=== PATIENT | male | born 1985 | race Two or more races ===

== ENCOUNTER 2021-11-25 00:31 | Emergency (ER) | payer SELFPAY ==
[~2021-11-25] VITALS: Ht 170.2 cm; Wt 90.7 kg
[~2021-11-25 00:31] MED LIST: TRAM50TA2; ZOLP5TAB
[2021-11-25 01:00] VITALS: BP 124/68
== END 2021-11-25 01:50 | disposition home or self-care (01) ==
LOC: EDBD 00:31 → ER 00:31
DX: M54.2 Cervicalgia (principal); V48.6XXA Car passenger injured in noncollision transport accident in traffic accident, initial encounter; Y93.89 Activity, other specified; Y92.410 Unspecified street and highway as the place of occurrence of the external cause; Y99.8 Other external cause status
CPT/HCPCS: 72040